=== PATIENT | female | born 1980 | race Caucasian/White ===

== ENCOUNTER 2019-01-15 06:54 | Inpatient (IN) | payer MEDICAID ==
[2019-01-15 07:28] LABS: ADD MAN DIFF? NO
[2019-01-15 07:30] LABS: ABNORMAL IP MESSAGE 1; BASOPHIL # 0.1 10^3/ul (0.0-0.1); BASOPHILS % 0.6 % (0.0-2.0); EOSINOPHILS # 0.1 10^3/ul (0.0-0.5); HEMATOCRIT 24.9 % (37.0-47.0); LYMPHOCYTES % 25.1 % (15.0-51.0); MEAN CORPUSCULAR HEMOGLOBIN 14.1 pg (29.0-33.0); MEAN CORPUSCULAR HGB CONC 26.1 g/dl (32.0-37.0); MEAN CORPUSCULAR VOLUME 53.9 fl (82.0-101.0); MEAN PLATELET VOLUME 9.6 fl (7.4-10.4); MONOCYTE # 0.5 10^3/ul (0.3-0.9); MONOCYTES % 5.9 % (0.0-11.0); NEUTROPHIL # 5.4 10^3/ul (1.6-7.5); NEUTROPHILS % 67.2 % (39.0-77.0); PLATELET COUNT 461 10^3/UL (140-415); RED BLOOD COUNT 4.62 10^6/ul (4.20-5.40); RED CELL DISTRIBUTION WIDTH 22.3 % (11.5-14.5)
[2019-01-15] MEDS: SOD CHLORIDE 0.9% 1,000 ML IV ×3 (07:30→19:01)
[2019-01-15] MEDS: LIDOCAINE/MYLANTA 40 ML BTL PO (07:30)
[2019-01-15] MEDS: BELLADONNA/PHENOBARBITAL TAB PO (07:30)
[2019-01-15] MEDS: ONDANSETRON 4 MG INJ IV ×2 (07:30→21:41)
[2019-01-15 07:31] LABS: POSITIVE DIFF @See below
[2019-01-15] MEDS: KETOROLAC 15 MG INJ IV (07:31)
[2019-01-15 07:32] LABS: HEMOGLOBIN 6.5 g/dl (12.0-16.0)
[2019-01-15 07:34] LABS: PATH REVIEW? YES
[2019-01-15 07:42] LABS: ADD UMIC YES; UR ASCORBIC ACID NEGATIVE (NEGATIVE); UR BILIRUBIN (Dip) NEGATIVE (NEGATIVE); UR BLOOD (Dip) 2+ mg/dL (NEGATIVE); UR CLARITY CLEAR (CLEAR); UR COLOR STRAW (YELLOW); UR GLUCOSE (Dip) NEGATIVE (NEGATIVE); UR KETONES (Dip) NEGATIVE (NEGATIVE); UR LEUKOCYTE ESTERASE (Dip) NEGATIVE Leu/ul (NEGATIVE); UR NITRITE (Dip) NEGATIVE (NEGATIVE); UR RBC 3 /HPF (0-5); UR SPECIFIC GRAVITY (Dip) 1.015 (1.003-1.030); UR SQUAMOUS EPITHELIAL CELL FEW /HPF (FEW); UR TOTAL PROTEIN (Dip) NEGATIVE (NEGATIVE); UR UROBILINOGEN (Dip) NEGATIVE (NEGATIVE); UR WBC 1 /HPF (0-5)
[2019-01-15 07:51] LABS: ALANINE AMINOTRANSFERASE 35 IU/L (13-69); ALBUMIN 4.3 g/dl (3.3-4.9); ALBUMIN/GLOBULIN RATIO 0.95; ALKALINE PHOSPHATASE 100 IU/L (42-121); ANION GAP 10 (5-13); ASPARTATE AMINO TRANSFERASE 25 IU/L (15-46); BLOOD UREA NITROGEN 11 mg/dl (7-20); CALCIUM 8.8 mg/dl (8.4-10.2); CARBON DIOXIDE 23 mmol/L (21-31); CHLORIDE 105 mmol/L (97-110); CREATININE 0.38 mg/dl (0.44-1.00); Estimated GFR > 60 mL/min (>60); GLUCOSE 127 mg/dl (70-220); LIPASE 48 U/L (23-300); POTASSIUM 3.7 mmol/L (3.5-5.1); SODIUM 138 mmol/L (135-144); TOTAL PROTEIN 8.8 g/dl (6.1-8.1)
[2019-01-15] MEDS: HYDROmorphONE 0.5 MG/0.5 ML SYG IV ×2 (08:18→14:12)
[2019-01-15] MEDS: PIPER-TAZO 3.375 GM IV (PMX) 100 ML IVPB ×3 (08:44→23:44)
[2019-01-15 09:27] LABS: ANISOCYTOSIS 3+ (0-0); BAND NEUTROPHILS #M 0.1 10^3/ul (0.0-0.6); BAND NEUTROPHILS % (M) 2 % (0-4); BASOPHIL #M 0.1 10^3/ul (0.0-0.0); BASOPHILS % (M) 2 % (0-2); EOSINOPHILS % (M) 4 % (0-7); GIANT THROMBO% (M) 5 % (0-0); HYPOCHROMASIA 3+ (0-0); LYMPHOCYTES #M 1.6 10^3/ul (0.8-2.9); LYMPHOCYTES % (M) 20 % (15-51); MICROCYTOSIS 3+ (0-0); MONOCYTE #M 0.2 10^3/ul (0.3-0.9); MONOCYTES % (M) 3 % (0-11); OVALOCYTES 1+ (0-0); PLATELET ESTIMATE NORMAL; POIKILOCYTOSIS 2+ (0-0); POLYCHROMASIA 1+ (0-0); SEG NEUT #M 5.5 10^3/ul (1.6-7.5); SEGMENTED NEUTROPHILS (M) % 69 % (39-77); SMUDGE%M 5 % (0-0)
[2019-01-15] MEDS: ACETAMINOPHEN 325 MG TAB PO ×2 (12:00→21:41)
[2019-01-15] MEDS ORDERED: NACL 0.9% 3 ML SYG IV (12:00)
[2019-01-15 12:07] LABS: IMMEDIATE SPIN CROSSMATCH 1 2
[2019-01-15 12:11] LABS: IRON 14 ug/dl (35-150)
[2019-01-15 12:21] LABS: % IRON SATURATION 3 % SAT (22-52); TOTAL IRON BINDING CAPACITY 547 ug/dl (241-421)
[2019-01-15] MEDS: morphine 2 MG INJ IV (12:40)
[2019-01-15] MEDS: MAGNESIUM HYDROXIDE 30ML CUP PO (15:00)
[2019-01-15] MEDS ORDERED: POLYETHYLENE GLYCOL 17 GM PACKET PO (15:00)
[2019-01-15 15:43] LABS: FERRITIN 2.9 ng/ml (6.2-137.0)
[2019-01-15] MEDS: PANTOPRAZOLE (EC) 40 MG TAB PO (18:00)
[2019-01-15] MEDS: HYDROmorphONE 1 MG/ML SYG IV ×2 (18:59→23:08)
[2019-01-15] MEDS: DOCUSATE SODIUM 250 MG CAP PO (21:41)
[2019-01-16] MEDS: ONDANSETRON 4 MG INJ IV (04:09)
[2019-01-16] MEDS: HYDROmorphONE 1 MG/ML SYG IV ×5 (04:11→23:44)
[2019-01-16 05:13] LABS: ADD MAN DIFF? NO
[2019-01-16 05:25] LABS: ABNORMAL IP MESSAGE 1; BASOPHIL # 0.1 10^3/ul (0.0-0.1); BASOPHILS % 0.3 % (0.0-2.0); EOSINOPHILS % 0.1 % (0.0-7.0); HEMOGLOBIN 9.1 g/dl (12.0-16.0); LYMPHOCYTES # 0.9 10^3/ul (0.8-2.9); LYMPHOCYTES % 5.2 % (15.0-51.0); MEAN CORPUSCULAR VOLUME 59.8 fl (82.0-101.0); MONOCYTE # 1.1 10^3/ul (0.3-0.9); MONOCYTES % 5.9 % (0.0-11.0); NEUTROPHIL # 15.6 10^3/ul (1.6-7.5); NEUTROPHILS % 87.8 % (39.0-77.0); PLATELET COUNT 381 10^3/UL (140-415); RED BLOOD COUNT 5.25 10^6/ul (4.20-5.40)
[2019-01-16 05:25] LABS: WHITE BLOOD COUNT 17.7 10^3/ul (4.8-10.8)
[2019-01-16] MEDS: PIPER-TAZO 3.375 GM IV (PMX) 100 ML IVPB ×4 (05:32→23:57)
[2019-01-16 05:39] LABS: HEMATOCRIT 31.4 % (37.0-47.0); MEAN CORPUSCULAR HEMOGLOBIN 17.3 pg (29.0-33.0); RED CELL DISTRIBUTION WIDTH 31.7 % (11.5-14.5)
[2019-01-16 05:40] LABS: POSITIVE DIFF @See below
[2019-01-16 06:07] LABS: ALANINE AMINOTRANSFERASE 23 IU/L (13-69); ALBUMIN 3.9 g/dl (3.3-4.9); ALKALINE PHOSPHATASE 92 IU/L (42-121); ANION GAP 8 (5-13); ASPARTATE AMINO TRANSFERASE 29 IU/L (15-46); BILIRUBIN,INDIRECT 3.4 mg/dl (0-1.1); BILIRUBIN,TOTAL 3.4 mg/dl (0.2-1.3); BLOOD UREA NITROGEN 6 mg/dl (7-20); CALCIUM 8.4 mg/dl (8.4-10.2); CARBON DIOXIDE 24 mmol/L (21-31); CHLORIDE 104 mmol/L (97-110); CHOL/HDL RATIO 3.1 RATIO; CHOLESTEROL 157 mg/dl (100-200); CREATININE 0.41 mg/dl (0.44-1.00); Estimated GFR > 60 mL/min (>60); GLUCOSE 134 mg/dl (70-220); HDL CHOLESTEROL 50 mg/dl (34-82); LDL CHOLESTEROL,CALCULATED 91 mg/dl; PHOSPHORUS 2.8 mg/dl (2.5-4.9); POTASSIUM 3.5 mmol/L (3.5-5.1); SODIUM 136 mmol/L (135-144); TOTAL PROTEIN 8.2 g/dl (6.1-8.1); TRIGLYCERIDES 78 mg/dl (0-149)
[2019-01-16 06:58] LABS: HEMOGLOBIN A1C 5.5 % (0-5.9)
[2019-01-16] MEDS: PANTOPRAZOLE (EC) 40 MG TAB PO ×2 (07:01→17:42)
[2019-01-16] MEDS: SOD CHLORIDE 0.9% 1,000 ML IV ×2 (07:04→17:45)
[2019-01-16] MEDS: DOCUSATE SODIUM 250 MG CAP PO ×2 (08:42→20:59)
[2019-01-16] MEDS: SOD FERRIC GLUC COMPLX 125 MG in SOD CHLORIDE 0.9% 100 ML IVPB ×2 (11:40→18:29)
[2019-01-16] MEDS: ACETAMINOPHEN 325 MG TAB PO (12:14)
[2019-01-17] MEDS: SOD CHLORIDE 0.9% 1,000 ML IV ×3 (00:12→22:40)
[2019-01-17] MEDS: HYDROmorphONE 1 MG/ML SYG IV ×5 (04:01→23:21)
[2019-01-17] MEDS: PIPER-TAZO 3.375 GM IV (PMX) 100 ML IVPB ×4 (06:05→23:21)
[2019-01-17] MEDS: PANTOPRAZOLE (EC) 40 MG TAB PO ×2 (06:05→18:25)
[2019-01-17] MEDS: DOCUSATE SODIUM 250 MG CAP PO ×2 (08:02→20:13)
[2019-01-17 11:28] LABS: ADD MAN DIFF? NO
[2019-01-17 11:34] LABS: ABNORMAL IP MESSAGE 1; BASOPHIL # 0.1 10^3/ul (0.0-0.1); BASOPHILS % 0.3 % (0.0-2.0); EOSINOPHILS # 0.1 10^3/ul (0.0-0.5); EOSINOPHILS % 0.4 % (0.0-7.0); HEMATOCRIT 29.7 % (37.0-47.0); HEMOGLOBIN 8.7 g/dl (12.0-16.0); LYMPHOCYTES # 1.9 10^3/ul (0.8-2.9); LYMPHOCYTES % 8.3 % (15.0-51.0); MEAN CORPUSCULAR HEMOGLOBIN 17.9 pg (29.0-33.0); MEAN CORPUSCULAR HGB CONC 29.3 g/dl (32.0-37.0); MEAN CORPUSCULAR VOLUME 61.1 fl (82.0-101.0); MEAN PLATELET VOLUME 9.6 fl (7.4-10.4); MONOCYTE # 1.7 10^3/ul (0.3-0.9); MONOCYTES % 7.2 % (0.0-11.0); NEUTROPHIL # 18.9 10^3/ul (1.6-7.5); NEUTROPHILS % 82.8 % (39.0-77.0); PLATELET COUNT 376 10^3/UL (140-415); RED BLOOD COUNT 4.86 10^6/ul (4.20-5.40); RED CELL DISTRIBUTION WIDTH 32.7 % (11.5-14.5)
[2019-01-17 11:34] LABS: WHITE BLOOD COUNT 22.9 10^3/ul (4.8-10.8)
[2019-01-17 11:37] LABS: POSITIVE DIFF @See below
[2019-01-17 11:47] LABS: LACTIC ACID 1.2 mmol/L (0.5-2.0)
[2019-01-17 11:48] LABS: ALANINE AMINOTRANSFERASE 39 IU/L (13-69); ALBUMIN 3.5 g/dl (3.3-4.9); ALBUMIN/GLOBULIN RATIO 0.87; ALKALINE PHOSPHATASE 115 IU/L (42-121); ANION GAP 10 (5-13); ASPARTATE AMINO TRANSFERASE 36 IU/L (15-46); BILIRUBIN,INDIRECT 2.7 mg/dl (0-1.1); BILIRUBIN,TOTAL 2.7 mg/dl (0.2-1.3); BLOOD UREA NITROGEN 8 mg/dl (7-20); CALCIUM 8.6 mg/dl (8.4-10.2); CARBON DIOXIDE 20 mmol/L (21-31); CHLORIDE 107 mmol/L (97-110); CREATININE 0.41 mg/dl (0.44-1.00); Estimated GFR > 60 mL/min (>60); GLUCOSE 100 mg/dl (70-220); POTASSIUM 3.4 mmol/L (3.5-5.1); SODIUM 137 mmol/L (135-144); TOTAL PROTEIN 7.5 g/dl (6.1-8.1)
[2019-01-17] MEDS: SOD FERRIC GLUC COMPLX 125 MG in SOD CHLORIDE 0.9% 100 ML IVPB (12:21)
[2019-01-17] MEDS ORDERED: MIDAZOLAM 1 MG/ML 2 ML INJ (14:27)
[2019-01-17] MEDS ORDERED: LIDOCAINE 2% (SDV) 5 ML INJ (14:27)
[2019-01-17] MEDS ORDERED: SEVOFLURANE 15 MIN (14:27)
[2019-01-17] MEDS ORDERED: CEFAZOLIN 1 GM INJ (14:27)
[2019-01-17] MEDS ORDERED: ROCURONIUM 50 MG INJ (14:28)
[2019-01-17] MEDS ORDERED: ONDANSETRON 4 MG INJ (14:28)
[2019-01-17] MEDS ORDERED: METOCLOPRAMIDE 10 MG INJ (14:28)
[2019-01-17] MEDS ORDERED: PROPOFOL 20 ML (14:28)
[2019-01-17] MEDS ORDERED: FENTAnyl 50 MCG/ML VIAL (14:28)
[2019-01-17] MEDS ORDERED: MIDAZOLAM 1 MG/ML 2 ML INJ IV (14:30)
[2019-01-17] MEDS ORDERED: METOCLOPRAMIDE 10 MG INJ IV (14:30)
[2019-01-17] MEDS ORDERED: HYDROmorphONE 1 MG/5 ML IV SYRINGE IV (14:30)
[2019-01-17] MEDS ORDERED: DIPHENHYDRAMINE 50 MG INJ IV (14:30)
[2019-01-17] MEDS ORDERED: OXYCODONE/ACETAMINOPHEN (5/325) TAB PO ×2 (14:30)
[2019-01-17] MEDS: BUPIVACAINE 0.25%/EPI (SDV) 30 ML INJ (14:59)
[2019-01-17] MEDS: LIDOCAINE 1% (MPF) 30 ML INJ (15:00)
[2019-01-17] MEDS: IOHEXOL 300MG/ML 30 ML BTL (15:00)
[2019-01-17] MEDS ORDERED: KETOROLAC 30 MG INJ (15:30)
[2019-01-17] MEDS: MEPERIDINE 25 MG INJ IV (16:09)
[2019-01-17] MEDS: ONDANSETRON 4 MG INJ IV (16:09)
[2019-01-17] MEDS: LACTATED RINGER'S 1,000 ML IV (16:10)
[2019-01-17] MEDS: HYDROmorphONE 1 MG/5 ML IV SYRINGE IV ×3 (16:25→16:40)
[2019-01-18] MEDS: HYDROmorphONE 1 MG/ML SYG IV ×2 (03:21→09:17)
[2019-01-18 05:15] LABS: ADD MAN DIFF? NO
[2019-01-18 05:21] LABS: WHITE BLOOD COUNT 16.8 10^3/ul (4.8-10.8)
[2019-01-18 05:21] LABS: ABNORMAL IP MESSAGE 1; BASOPHIL # 0.1 10^3/ul (0.0-0.1); BASOPHILS % 0.3 % (0.0-2.0); EOSINOPHILS % 0.2 % (0.0-7.0); HEMATOCRIT 27.3 % (37.0-47.0); HEMOGLOBIN 7.8 g/dl (12.0-16.0); LYMPHOCYTES # 0.9 10^3/ul (0.8-2.9); LYMPHOCYTES % 5.1 % (15.0-51.0); MEAN CORPUSCULAR HEMOGLOBIN 17.8 pg (29.0-33.0); MEAN CORPUSCULAR HGB CONC 28.6 g/dl (32.0-37.0); MEAN CORPUSCULAR VOLUME 62.2 fl (82.0-101.0); MONOCYTE # 1.1 10^3/ul (0.3-0.9); MONOCYTES % 6.7 % (0.0-11.0); NEUTROPHIL # 14.6 10^3/ul (1.6-7.5); NEUTROPHILS % 86.9 % (39.0-77.0); PLATELET COUNT 331 10^3/UL (140-415); RED BLOOD COUNT 4.39 10^6/ul (4.20-5.40); RED CELL DISTRIBUTION WIDTH 33.3 % (11.5-14.5)
[2019-01-18 05:23] LABS: POSITIVE DIFF @See below
[2019-01-18] MEDS: PANTOPRAZOLE (EC) 40 MG TAB PO (05:23)
[2019-01-18] MEDS: PIPER-TAZO 3.375 GM IV (PMX) 100 ML IVPB ×3 (05:23→17:56)
[2019-01-18 06:16] LABS: ALANINE AMINOTRANSFERASE 53 IU/L (13-69); ALBUMIN 3.3 g/dl (3.3-4.9); ALBUMIN/GLOBULIN RATIO 0.84; ALKALINE PHOSPHATASE 136 IU/L (42-121); ANION GAP 9 (5-13); ASPARTATE AMINO TRANSFERASE 74 IU/L (15-46); BILIRUBIN,INDIRECT 1.3 mg/dl (0-1.1); BILIRUBIN,TOTAL 1.3 mg/dl (0.2-1.3); BLOOD UREA NITROGEN 7 mg/dl (7-20); CALCIUM 8.3 mg/dl (8.4-10.2); CARBON DIOXIDE 22 mmol/L (21-31); CHLORIDE 110 mmol/L (97-110); CREATININE 0.39 mg/dl (0.44-1.00); Estimated GFR > 60 mL/min (>60); GLUCOSE 79 mg/dl (70-220); POTASSIUM 3.3 mmol/L (3.5-5.1); SODIUM 141 mmol/L (135-144); TOTAL PROTEIN 7.2 g/dl (6.1-8.1)
[2019-01-18] MEDS: DOCUSATE SODIUM 250 MG CAP PO ×2 (09:17→20:19)
[2019-01-18] MEDS: SOD CHLORIDE 0.9% 1,000 ML IV (10:10)
[2019-01-18] MEDS: BISACODYL 10 MG SUPP PR (11:00)
[2019-01-18] MEDS: POTASSIUM CHLORIDE (SR) 20 MEQ TAB PO (12:12)
[2019-01-18] MEDS: PSYLLIUM 28% PACKET PO ×2 (12:12→20:19)
[2019-01-18] MEDS: HYDROCODONE/APAP (5/325) TAB PO ×2 (12:17→20:19)
[2019-01-18] MEDS: BISACODYL (EC) 5 MG TAB PO (13:42)
[2019-01-18] MEDS: SOD FERRIC GLUC COMPLX 125 MG in SOD CHLORIDE 0.9% 100 ML IVPB (13:42)
[2019-01-18 23:48] LABS: OCCULT BLOOD STOOL NEGATIVE (NEGATIVE)
[2019-01-19] MEDS: PIPER-TAZO 3.375 GM IV (PMX) 100 ML IVPB ×3 (00:17→11:29)
[2019-01-19] MEDS: HYDROCODONE/APAP (5/325) TAB PO ×2 (00:23→07:47)
[2019-01-19 05:09] LABS: ADD MAN DIFF? NO
[2019-01-19 05:23] LABS: ABNORMAL IP MESSAGE 1; BASOPHILS % 0.4 % (0.0-2.0); EOSINOPHILS # 0.2 10^3/ul (0.0-0.5); EOSINOPHILS % 1.5 % (0.0-7.0); HEMATOCRIT 26.9 % (37.0-47.0); HEMOGLOBIN 7.8 g/dl (12.0-16.0); LYMPHOCYTES % 17.9 % (15.0-51.0); MEAN CORPUSCULAR HEMOGLOBIN 18.2 pg (29.0-33.0); MEAN CORPUSCULAR VOLUME 62.7 fl (82.0-101.0); MEAN PLATELET VOLUME 9.4 fl (7.4-10.4); MONOCYTE # 0.8 10^3/ul (0.3-0.9); MONOCYTES % 7.3 % (0.0-11.0); NEUTROPHIL # 7.9 10^3/ul (1.6-7.5); NEUTROPHILS % 72.1 % (39.0-77.0); PLATELET COUNT 363 10^3/UL (140-415); RED BLOOD COUNT 4.29 10^6/ul (4.20-5.40); RED CELL DISTRIBUTION WIDTH 34.4 % (11.5-14.5)
[2019-01-19 05:40] LABS: POSITIVE DIFF @See below
[2019-01-19 05:42] LABS: ANION GAP 9 (5-13); BLOOD UREA NITROGEN 3 mg/dl (7-20); CALCIUM 8.6 mg/dl (8.4-10.2); CARBON DIOXIDE 22 mmol/L (21-31); CHLORIDE 107 mmol/L (97-110); CREATININE 0.36 mg/dl (0.44-1.00); Estimated GFR > 60 mL/min (>60); GLUCOSE 95 mg/dl (70-220); POTASSIUM 3.1 mmol/L (3.5-5.1); SODIUM 138 mmol/L (135-144)
[2019-01-19] MEDS: PSYLLIUM 28% PACKET PO (08:21)
[2019-01-19] MEDS: DOCUSATE SODIUM 250 MG CAP PO (08:21)
[2019-01-19] MEDS: SOD FERRIC GLUC COMPLX 125 MG in SOD CHLORIDE 0.9% 100 ML IVPB (13:25)
[2019-01-19] MEDS: POTASSIUM CHLORIDE (SR) 20 MEQ TAB PO (13:53)
== END 2019-01-19 14:47 | disposition home or self-care (01) | DRG 419 ==
LOC: E/R 06:54 → MS1 09:04
PROC: 0FT44ZZ Resection of Gallbladder, Percutaneous Endoscopic Approach (ICD-10-PCS; principal; 2019-01-17 10:30)
PROC: BF13YZZ Fluoroscopy of Gallbladder and Bile Ducts using Other Contrast (ICD-10-PCS; 2019-01-17 10:30)
PROC: 30233N1 Transfusion of Nonautologous Red Blood Cells into Peripheral Vein, Percutaneous Approach (ICD-10-PCS; 2019-01-17 14:26)
DX: K80.00 Calculus of gallbladder with acute cholecystitis without obstruction (principal); E66.9 Obesity, unspecified; D50.0 Iron deficiency anemia secondary to blood loss (chronic)
CPT/HCPCS: 36415; 36430; 74018; 74176; 76705; 76856; 78226; 80048; 80053; 80061; 81001; 81025; 82270; 82728; 83036; 83540; 83605; 83690; 83735; 84100; 85025; 86850; 86900; 86901; 86920; 88304; 96361; 96374; 96375; 99285-25